=== PATIENT | male | born 1960 | race Two or more races ===

== ENCOUNTER 2024-03-25 15:56 | Emergency (ER) | payer OTHER ==
[~2024-03-25] VITALS: Ht 177.8 cm; Wt 99.8 kg
[2024-03-25] MEDS ORDERED: KETOROLAC TROMETHAMINE 30 MG VIAL IV ONE (17:30)
[2024-03-25] MEDS ORDERED: TAMSULOSIN HCL 0.4 MG CAP PO ONE (17:45)
[2024-03-25] MEDS ORDERED: SODIUM CHLORIDE 0.45 % 500 ML IV ONE (17:45)
[2024-03-25] MEDS ORDERED: 0.9 % SODIUM CHLORIDE 500 ML IV ONE (17:45)
[2024-03-25] MEDS ORDERED: ONDANSETRON HCL 2 MG/ML VIAL IV ONE (17:45)
[2024-03-25 18:11] LABS: HEMATOCRIT 42.9 % (39.0-48.0); HEMOGLOBIN 14.7 g/dL (13-16.00); MEAN CELL VOLUME 88.4 fL (80.0-100.00); MEAN CORPUSCULAR HEMOGLOBIN 30.4 pg (27.00-32.0); MEAN CORPUSCULAR HGB CONC 34.3 g/dl (32.0-36.0); PLATELET COUNT 159 K/uL (150-450); RED BLOOD COUNT 4.85 M/uL (4.00-6.00); RED CELL DISTRIBUTION WIDTH 13.9 % (11.5-14.5)
[2024-03-25 18:11] LABS: URINE APPEARANCE Cloudy; URINE BILIRRUBIN Negative (NEGATIVE); URINE BLOOD Large; URINE COLOR Dark Yellow; URINE GLUCOSE Negative (NEGATIVE); URINE KETONE Trace (NEGATIVE); URINE LEUKOCYTE Trace; URINE NITRATE Negative
[2024-03-25 18:15] LABS: URINE BACTERIA 12.2 uL (0.0-1933); URINE EPITHELIAL CELLS 4.1 uL (0.0-38.8); URINE WBC 10.2 uL (0.0-23.2)
[2024-03-25 18:16] LABS: URINE CAST 0.88 uL (0.0-1.40); URINE PROTEIN 100 (NEGATIVE)
[2024-03-25 18:47] LABS: ALBUMIN 3.9 gm/dL (3.4-5.0); BILIRUBIN TOTAL 0.35 mg/dL (0.3-1.2); CREATININE SERUM 1.57 mg/dL (0.70-1.30); GFR 44.84; GLOBULINA 3.6 G/DL (2.4-3.5); POTASSIUM 4.29 mEq/L (3.5-5.1); TOTAL PROTEIN 7.5 gm/dL (6.4-8.2)
[2024-03-25] MEDS ORDERED: TAMS0.4C PO (20:35)
[2024-03-25] MEDS ORDERED: DUI500 PO (20:35)
[2024-03-25] MEDS ORDERED: DICLOFENAC SODI75 MG PO (20:35)
== END 2024-03-25 21:15 ==
LOC: ER 15:58
PROVIDERS: Nurse Practitioner Family
DX: N20.1 Calculus of ureter (principal); R10.9 Unspecified abdominal pain

== ENCOUNTER 2024-03-27 15:52 | Emergency (ER) | payer OTHER ==
[~2024-03-27] VITALS: Ht 177.8 cm; Wt 99.8 kg
[~2024-03-27 15:52] MED LIST: DICLOFENAC SODI75 MG PO; DUI500 PO; TAMS0.4C PO
[2024-03-27] MEDS ORDERED: MORGIDOX50 MG PO (16:09)
[2024-03-27] MEDS ORDERED: 0.9 % SODIUM CHLORIDE 1,000 ML IV STA (16:27)
[2024-03-27] MEDS ORDERED: ONDANSETRON HCL 2 MG/ML VIAL IV STA (16:46)
[2024-03-27] MEDS ORDERED: FAMOTIDINE/PF 20 MG in 0.9 % SODIUM CHLORIDE 8 ML IV PUSH STA (16:47)
[2024-03-27 16:52] LABS: HEMATOCRIT 38.7 % (39.0-48.0); HEMOGLOBIN 13.4 g/dL (13-16.00); MEAN CELL VOLUME 86.4 fL (80.0-100.00); MEAN CORPUSCULAR HGB CONC 34.8 g/dl (32.0-36.0); PLATELET COUNT 136 K/uL (150-450); RED BLOOD COUNT 4.47 M/uL (4.00-6.00); RED CELL DISTRIBUTION WIDTH 14.1 % (11.5-14.5)
[2024-03-27 17:15] LABS: URINE APPEARANCE Clear; URINE BILIRRUBIN Negative (NEGATIVE); URINE BLOOD Negative; URINE COLOR Yellow; URINE GLUCOSE Negative (NEGATIVE); URINE KETONE Trace (NEGATIVE); URINE LEUKOCYTE Negative; URINE NITRATE Negative; URINE PROTEIN Negative (NEGATIVE); URINE UROBILINOGEN 0.2 E.U./dl
[2024-03-27 17:16] LABS: URINE BACTERIA 4.8 uL (0.0-1933); URINE EPITHELIAL CELLS 1.8 uL (0.0-38.8)
[2024-03-27 17:18] LABS: CALCIUM 8.9 mg/dL (8.5-10.1); CREATININE SERUM 1.82 mg/dL (0.70-1.30); GFR 37.81; POTASSIUM 3.86 mEq/L (3.5-5.1)
[2024-03-27 17:33] LABS: URINE CAST 0.73 uL (0.0-1.40)
== END 2024-03-27 19:31 | disposition home or self-care (01) ==
LOC: ER 15:54
PROVIDERS: Emergency Medicine
DX: K52.9 Noninfective gastroenteritis and colitis, unspecified (principal); R10.9 Unspecified abdominal pain

== ENCOUNTER 2024-06-23 21:00 | Emergency (ER) | payer OTHER ==
[~2024-06-23] VITALS: Ht 177.8 cm; Wt 102.1 kg
[~2024-06-23 21:00] MED LIST changes: +MORGIDOX50 MG PO
== END 2024-06-23 22:38 | disposition home or self-care (01) ==
LOC: ER 21:03
DX: S01.82XA Laceration with foreign body of other part of head, initial encounter (principal); Y93.67 Activity, basketball; Y92.89 Other specified places as the place of occurrence of the external cause